=== PATIENT | male | born 1965 | race Caucasian/White ===

== ENCOUNTER 2017-11-23 21:11 | Emergency (ER) | payer OTHER ==
[~2017-11-23] VITALS: Ht 172.7 cm; Wt 80.7 kg
--- NOTE | 2017-11-23 21:34 | ED HEADACHE COMPLAINT ---
History of Present Illness General Chief Complaint: General Adult Stated Complaint: LETHARGY,MALAISE Source: patient, family Exam Limitations: no limitations Vital Signs & Intake/Output Vital Signs & Intake/Output Vital Signs Date Time Temp Pulse Resp B/P B/P Pulse O2 O2 Flow FiO2 Mean Ox Delivery Rate 11/23 2233 57 19 157/92 97 11/232 99.1 59 18 166/100 98 Triage Note: PT BIBA FOR FEELING "SICK& TIRED" SINCE TUESDAY PER PT. FATHER @ [facility] & STATES PT CALLED HIM & COULDNT HARDLY TALK, SO HE WENT TO [facility] & DONE STROKE SCALE & CALLED EMS. PT STATES HE ALSO FELL FROM A LADDER ABOUT 12FT. PT STATES HE HAS BEEN NASEOUS BUT DENIES VOMITING, DENIES FEVER Triage Nurses Notes Reviewed? yes HPI: Patient presents for evaluation. Patient has been very tired lately. Patient states he drove to and from [place] 2 weeks ago and he has been tired since then. On Tuesday patient was towards the top of a 12 foot ladder and the ladder slipped and he felt the ground. Patient denies hitting his head and there was no loss of consciousness. Patient is on PRADAXA. Patient states he landed on his left hip and he noticed a bruise on his left hip that increases in size through Tuesday so he became concerned so he stopped his PRADAXA. His father called to check on him this evening and he was very slow to response was father became concerned and had the patient brought in by ambulance for evaluation. Past History Travel History Traveled to [place] past 21 day No Medical History Any Pertinent Medical History? see below for history Neurological: CVA Cardiovascular: hypertension Renal: KIDNEY TRANSPLANT IN 2008 Surgical History Surgical History: RENAL TRANSPLANT Psychosocial History What is your primary language [place] Tobacco Use: Never used ETOH Use: 6 Illicit Drug Use: denies illicit drug use Family History Hx Contributory? No Review of Systems Review of Systems Constitutional: Reports: see HPI, weakness. Eyes: Reports: no symptoms. Ears, Nose, Throat, Mouth: Reports: no symptoms. Respiratory: Reports: no symptoms. Cardiovascular: Reports: no symptoms. Gastrointestinal/Abdominal: Reports: no symptoms. Genitourinary: Reports: no symptoms. Musculoskeletal: Reports: see HPI, joint pain. Skin: Reports: no symptoms. Neurological/Psychological: Reports: see HPI. Hematologic/Endocrine: Reports: no symptoms. Endocrine: Reports: no symptoms. Immunologic/Allergic: Reports: no symptoms. All Other Systems: Reviewed and Negative Physical Exam Physical Exam General Appearance: well developed/nourished, awake, lethargic Head: atraumatic, normal appearance Eyes: Bilateral: PERRL, EOMI. Ears, Nose, Throat: normal pharynx, normal ENT inspection, hearing grossly normal Neck: normal inspection, supple, no midline tenderness Respiratory: normal breath sounds, chest non-tender, no respiratory distress, lungs clear Cardiovascular: regular rate/rhythm, normal peripheral pulses Gastrointestinal: normal bowel sounds, soft, non-tender, no organomegaly Back: normal inspection, normal range of motion Extremities: normal inspection, normal capillary refill, normal range of motion, no edema Psychiatric: awake, alert, oriented x 3, lethargic Cranial Nerves: normal hearing, normal speech, PERRL Motor/Sensory: no motor/sensory deficits Core Measures Sepsis Present: No Sepsis Focused Exam Completed? No Progress Differential Diagnosis: ICH, ELECTROLYTE ABNORMALIYT, HIP INJURY Plan of Care: Orders Procedure Date/time Status PARTIAL THROMBOPLASTIN TIME 11/23 2132 Complete PROTHROMBIN TIME 11/23 2132 Complete COMPREHENSIVE METABOLIC PANEL 11/23 2132 Complete CBC WITHOUT DIFFERENTIAL 11/23 2132 Complete Current Medications Sig/Esvin Start time Last Medication Dose Stop Time Status Admin Acetaminophen 1,000 MG ONCE ONE 11/23 2300 AC 11/23 (Ofirmev) 11/23 2314 2251 N/A 1 UNIT (No Carrier) Laboratory Tests 11/23/17 2200: Anion Gap 11, Estimated GFR 58 L, BUN/Creatinine Ratio 13.8, Glucose 120 H, Calcium 9.3, Total Bilirubin 1.4 H, AST 17, ALT 18 L, Alkaline Phosphatase 45, Total Protein 6.3, Albumin 3.6, Globulin 2.7, Albumin/Globulin Ratio 1.3, PT 12.2, INR 1.12, APTT 29, CBC w Diff NO MAN DIFF REQ, RBC 4.28 L, MCV 91.3, MCH 31.4 H, MCHC 34.4, RDW 12.6, MPV 7.8, Gran % 69.3, Lymphocytes % 19.2 L, Monocytes % 9.5 H, Eosinophils % 1.3, Basophils % 0.7, Absolute Granulocytes 5.4, Absolute Lymphocytes 1.5, Absolute Monocytes 0.7 H, Absolute Eosinophils 0.1, Absolute Basophils 0.1 Diagnostic Imaging: Viewed by Me: Radiology Read, CT Scan. Discussed w/RAD: Radiology Read, CT Scan. Radiology Impression: PATIENT: JUAN MANUEL WIGGINS PRESENT AGE: 52 PATIENT ACCOUNT NO: [id number] : 63 LOCATION: [facility] ORDERING PHYSICIAN: Cristobal Bennett MD SERVICE DATE: 11/23/17 EXAM TYPE: CAT - CT CERV SPINE WO IV CONTRAST; CT HEAD WO IV CONTRAST EXAMINATION: CT HEAD WITHOUT CONTRAST CT CERVICAL SPINE WITHOUT CONTRAST CLINICAL INFORMATION: Fall. Lethargic. COMPARISON: None. TECHNIQUE: Imaging was performed from the skull base to vertex without intravenous administration of contrast. In addition , helical noncontrast CT imaging was acquired through the cervical spine and source images were reviewed along with axial reconstructions and sagittal and coronal MPRs. DLP: 1007.34 mGy-cm FINDINGS: HEAD: No intracranial mass, hemorrhage, or midline shift is visualized. The ventricles and sulci are age- appropriate. No extra-axial collections are identified. The paranasal sinuses and mastoid air cells are well aerated. CERVICAL SPINE: There is no evidence of acute cervical spine fracture. Vertebral bodies remain normal in height. Cervical vertebrae have normal alignment. There is multilevel degenerative spondylosis of the cervical spine with disc height narrowing and endplate spurs and facet joint arthrosis No pre- or paravertebral soft tissue abnormality is identified. Limited assessment of the lung apices is unremarkable. IMPRESSION: 1. No acute intracranial pathology. 2. No CT evidence of acute cervical spine fracture or traumatic subluxation DICTATED BY: Rsoendo Camilo MD DATE/TIME DICTATED:11/23/172157 MACHINE HELPER:TITO DATE/TIME TRANSCRIBED:2157 CONFIDENTIAL, DO NOT COPY WITHOUT APPROPRIATE AUTHORIZATION. < Electronically signed in Other Vendor System> SIGNED BY: Rosendo Camilo MD [id number], PATIENT: JUAN MANUEL WIGGINS PRESENT AGE: 52 PATIENT ACCOUNT NO: [id number] : 63 LOCATION: [facility] ORDERING PHYSICIAN: Cristobal Bennett MD SERVICE DATE: 11/23/17 EXAM TYPE: RAD - XRY-HIP 2 -3 VIEWS, LEFT EXAMINATION: XR HIP, LEFT CLINICAL INFORMATION: 52-year-old man post 12 foot fall. COMPARISON: None TECHNIQUE: Two views of the left hip. FINDINGS: Bones and soft tissues are normal. No fracture. Alignment is anatomic. Hip joint space is maintained. IMPRESSION: Normal left hip. DICTATED BY: Shandra Otero MD DATE/TIME DICTATED:11/23/172233 MACHINE HELPER:TITO DATE/TIME TRANSCRIBED:11/23/172233 CONFIDENTIAL, DO NOT COPY WITHOUT APPROPRIATE AUTHORIZATION. <Electronically signed in Other Vendor System> SIGNED BY: Shandra Otero MD 11/23/172237, PATIENT: JUAN MANUEL WIGGINS PRESENT AGE: 52 PATIENT ACCOUNT NO: [id number] : 63 LOCATION: [facility] ORDERING PHYSICIAN: Cristobal Bennett MD SERVICE DATE: 11/23/17 EXAM TYPE: RAD - XRY-AP PELVIS EXAMINATION: XR PELVIS CLINICAL INFORMATION: 52-year- old man post 12 foot fall. COMPARISON: None TECHNIQUE: AP view of the pelvis. FINDINGS: The bones and soft tissues are normal. No fracture. Sacroiliac and hip joints are normal. Pubic symphysis is normal. No abnormal soft tissue calcifications. IMPRESSION: Normal pelvis. DICTATED BY: Shandra Otero MD DATE/TIME DICTATED:11/23/172233 MACHINE HELPER:TITO DATE/TIME TRANSCRIBED:2233 CONFIDENTIAL, DO NOT COPY WITHOUT APPROPRIATE AUTHORIZATION. < Electronically signed in Other Vendor System> SIGNED BY: Shandra Otero MD 12/05 CXR Impression: PATIENT: JUAN MANUEL WIGGINS PRESENT AGE: 52 PATIENT ACCOUNT NO: [id number] : 63 LOCATION: [facility] ORDERING PHYSICIAN: Cristobal Bennett MD SERVICE DATE: 11/23/17 EXAM TYPE: RAD - XRY-CHEST XRAY, SINGLE VIEW EXAMINATION:\\H\\ \\N\\XR CHEST CLINICAL INFORMATION: 52-year-old man post 12 foot fall. COMPARISON: None TECHNIQUE: Frontal view of the chest was obtained. FINDINGS: Lung volumes are somewhat low, accentuating normal bronchovascular markings. No focal contusion, displaced rib fracture, or pneumothorax is appreciated. Cardiomediastinal contours are prominent, but within the range of normal. There are no pleural effusions. IMPRESSION: No radiographic evidence of acute cardiothoracic injury. DICTATED BY: Shandra Otero MD DATE/TIME DICTATED:11/23/172232 MACHINE HELPER:TITO DATE/TIME TRANSCRIBED:11/23/172232 CONFIDENTIAL, DO NOT COPY WITHOUT APPROPRIATE AUTHORIZATION. <Electronically signed in Other Vendor System> SIGNED BY: Shandra Otero MD 11/23/172236 Comments: Patient and family have been updated on lab, x-ray, CAT scan results. Question up and answered. Patient is feeling much better. Patient is stable for discharge. Departure Departure Disposition: HOME OR SELF CARE Condition: Stable Clinical Impression Primary Impression: Headache Secondary Impressions: Contusion, hip, Lethargy Additional Instructions: Return if symptoms worsen or for any concerns. Make sure you take all of your medications as prescribed. Departure Forms: Customer Survey General Discharge Information
--- NOTE | 2017-11-23 22:06 | CT SCAN REPORT ---
EXAMINATION: CT HEAD WITHOUT CONTRAST CT CERVICAL SPINE WITHOUT CONTRAST CLINICAL INFORMATION: Fall. Lethargic. COMPARISON: None. TECHNIQUE: Imaging was performed from the skull base to vertex without intravenous administration of contrast. In addition, helical noncontrast CT imaging was acquired through the cervical spine and source images were reviewed along with axial reconstructions and sagittal and coronal MPRs. DLP: 1007.34 mGy-cm FINDINGS: HEAD: No intracranial mass, hemorrhage, or midline shift is visualized. The ventricles and sulci are age-appropriate. No extra-axial collections are identified. The paranasal sinuses and mastoid air cells are well aerated. CERVICAL SPINE: There is no evidence of acute cervical spine fracture. Vertebral bodies remain normal in height. Cervical vertebrae have normal alignment. There is multilevel degenerative spondylosis of the cervical spine with disc height narrowing and endplate spurs and facet joint arthrosis No pre- or paravertebral soft tissue abnormality is identified. Limited assessment of the lung apices is unremarkable. IMPRESSION: 1. No acute intracranial pathology. 2. No CT evidence of acute cervical spine fracture or traumatic subluxation
[2017-11-23 22:08] LABS: ABSOLUTE BASOPHIL COUNT 0.1 /CUMM (0.0-0.2); ABSOLUTE EOSINOPHIL COUNT 0.1 /CUMM (0.0-0.7); ABSOLUTE GRANULOCYTE CT 5.4 /CUMM (1.4-6.5); ABSOLUTE LYMPH COUNT 1.5 /CUMM (1.2-3.4); ABSOLUTE MONOCYTE COUNT 0.7 /CUMM (0.10-0.60); BASOPHIL % 0.7 % (0.0-2.0); EOSINOPHIL % 1.3 % (0-5); GRANULOCYTE % 69.3 % (42.2-75.2); HEMATOCRIT 39.1 % (42-52); MEAN CORPUSCULAR HGB 31.4 PG (27.0-31.0); MEAN CORPUSCULAR HGB CONC 34.4 G/DL (33.0-37.0); MEAN CORPUSCULAR VOLUME 91.3 FL (80.0-94.0); MEAN PLATELET VOLUME 7.8 FL (7.4-10.4); PLATELET COUNT 142 /CUMM (130-400); RBC DISTRIBUTION WIDTH 12.6 % (11.5-14.5); RED BLOOD CELL CT 4.28 /CUMM (4.70-6.10); WHITE BLOOD CELL COUNT 7.9 /CUMM (4.8-10.8)
[2017-11-23 22:17] LABS: PT 12.2 SEC (9.4-12.5); PTT 29 SEC (25-37)
[2017-11-23 22:33] VITALS: BP 157/92
--- NOTE | 2017-11-23 22:37 | RADIOLOGY REPORT ---
EXAMINATION:\H\ \N\XR CHEST CLINICAL INFORMATION: 52-year-old man post 12 foot fall. COMPARISON: None TECHNIQUE: Frontal view of the chest was obtained. FINDINGS: Lung volumes are somewhat low, accentuating normal bronchovascular markings. No focal contusion, displaced rib fracture, or pneumothorax is appreciated. Cardiomediastinal contours are prominent, but within the range of normal. There are no pleural effusions. IMPRESSION: No radiographic evidence of acute cardiothoracic injury.
--- NOTE | 2017-11-23 22:38 | RADIOLOGY REPORT ---
EXAMINATION: XR HIP, LEFT CLINICAL INFORMATION: 52-year-old man post 12 foot fall. COMPARISON: None TECHNIQUE: Two views of the left hip. FINDINGS: Bones and soft tissues are normal. No fracture. Alignment is anatomic. Hip joint space is maintained. IMPRESSION: Normal left hip.
--- NOTE | 2017-11-23 22:38 | RADIOLOGY REPORT ---
EXAMINATION: XR PELVIS CLINICAL INFORMATION: 52-year-old man post 12 foot fall. COMPARISON: None TECHNIQUE: AP view of the pelvis. FINDINGS: The bones and soft tissues are normal. No fracture. Sacroiliac and hip joints are normal. Pubic symphysis is normal. No abnormal soft tissue calcifications. IMPRESSION: Normal pelvis.
== END 2017-11-23 23:20 ==
LOC: ERH 21:11
PROVIDERS: Emergency Medicine
DX: S70.02XA Contusion of left hip, initial encounter (principal); R51 Headache; R53.83 Other fatigue; W11.XXXA Fall on and from ladder, initial encounter; Y92.9 Unspecified place or not applicable; Y93.9 Activity, unspecified
CPT/HCPCS: 71045; 72170; 73502-LT; 96374; J0131